=== PATIENT | female | born 1980 | race Caucasian/White ===

== ENCOUNTER 2020-08-29 20:25 | Emergency (ER) | payer MEDICAID ==
[~2020-08-29] VITALS: Ht 167.6 cm; Wt 61.7 kg
[2020-08-29 20:46] VITALS: BP_SYST 105
[2020-08-29] MEDS ORDERED: KETOROLAC TROMETHAMINE 30 MG VIAL IVP ONE (21:15)
[2020-08-29] MEDS ORDERED: NACL 0.9% 1,000 ML IV ONE (21:15)
[2020-08-29] MEDS ORDERED: cefTRIAXone 1 GM IVPB PREMIX 50 ML IV ONE (21:15)
[2020-08-29] MEDS ORDERED: IBUP-1971 PO (21:27)
[2020-08-29] MEDS ORDERED: CIPR-211 PO (21:27)
[2020-08-29] MEDS ORDERED: PHEN-726 PO (21:27)
[2020-08-29 21:41] LABS: BILIRUBIN,URINE NEGATIVE (NEGATIVE); BLOOD, URINE 2+ (NEGATIVE); CLARITY/URINE SL CLOUDY (CLEAR); COLOR,URINE YELLOW (YELLOW); GLUCOSE,URINE NEGATIVE (NEGATIVE); KETONES,URINE NEGATIVE (NEGATIVE); LEUKOCYTE ESTERASE ,URINE NEGATIVE (NEGATIVE); NITRITE, URINE POSITIVE (NEGATIVE); PROTEIN URINE TRACE (NEGATIVE); UROBILINOGEN,URINE 0.2 (0.2-1.0)
[2020-08-29 21:58] LABS: BACTERIA,URINE MANY /HPF (None Seen)
[2020-08-29 21:59] LABS: MUCUS,URINE None Seen /LPF (None Seen)
[2020-08-29 22:28] VITALS: BP_SYST 128
== END 2020-08-29 22:28 | disposition home or self-care (01) ==
LOC: SED 20:25
DX: N39.0 Urinary tract infection, site not specified (principal); F12.90 Cannabis use, unspecified, uncomplicated; Z79.899 Other long term (current) drug therapy; Z88.8 Allergy status to other drugs, medicaments and biological substances
CPT/HCPCS: 36415; 81000; 81025; 87040; 87086; 96365; 96375; 99284; J0696; J1885; J7030